=== PATIENT | male | born 1990 | race Caucasian/White ===

== ENCOUNTER 2017-08-02 19:39 | Emergency (ER) | payer OTHER ==
[~2017-08-02] VITALS: Ht 188 cm; Wt 121.1 kg
[~2017-08-02 19:39] MED LIST: AMOX500T10 PO; CEFU500T10 PO; CHOL10005 PO; CITA-141 PO; OXYC-865 PO; PRED-1 PO; PROM-110 PO; SILD25TA6 PO
--- NOTE | 2017-08-02 19:42 | ER Report ---
History and Physical Time Seen By MD: 19:41 HPI/ROS CHIEF COMPLAINT: Dizziness, lightheadedness HISTORY OF PRESENT ILLNESS: 27-year-old male presents ambulatory to the ER concerned about lightheadedness and dizziness. Patient is status post ulnar nerve surgery in his right arm several days ago.. He is wearing a large dressing involving his whole arm. He was told by his surgeon should he have any dizziness or shortness of breath come to the ER for evaluation of potential pulmonary embolism. Patient denies fever or chills. Patient notes some dizziness. When he describes sounds more like vertigo. It is reproducible with rapid head movement. Patient has no cough or shortness of breath. Patient has no leg swelling or calf pain. REVIEW OF SYSTEMS: Respiratory: No cough, no dyspnea. Cardiovascular: No chest pain, no palpitations. Gastrointestinal: No vomiting, no abdominal pain. Musculoskeletal: No back pain. Allergies: Coded Allergies: Quinolones (Verified Allergy, Unknown, 08/02/17) Home Meds Reported Medications Cholecalciferol (Vitamin D3) (VITAMIN D3) 1,000 Unit Tablet, 1000 UNIT PO, TAB 05/20/17 Citalopram Hydrobromide (CITALOPRAM HBR) 40 Mg Tablet, 40 MG PO QDAY, #5 TAB 05/20/17 Discontinued Reported Medications Sildenafil Citrate (VIAGRA) 25 Mg Tablet, 25 MG PO QDAY 05/20/17 Reviewed Nurses Notes: Yes Old Medical Records Reviewed: Yes Hx Substance Use Disorder: No Hx Alcohol Use: No Constitutional Vital Sign - Last 24 Hours 08/02/17 08/02/17 08/02/17 08/02/17 19:52 19:54 20:00 20:09 Pulse 93 82 Resp 19 17 B/P (MAP) 152/103 (119) 148/95 (112) Pulse Ox 94 92 08/02/17 08/02/17 08/02/17 20:24 20:30 21:02 Pulse 102 85 Resp 22 16 B/P (MAP) 153/88 (109) 145/85 (105) Pulse Ox 93 92 O2 Delivery Room Air Physical Exam General Appearance: The patient is alert, has no immediate need for airway protection and no current signs of toxicity. Vital signs stable, afebrile, pulse ox normal, no acute distress, slightly anxious-appearing HEENT: Pupils equal and round no injection. Oropharynx without redness or exudate, mucous members are moist Respiratory: Chest is non tender, lungs are clear to auscultation. No chest wall tenderness Cardiac: regular rate and rhythm Gastrointestinal: Abdomen is soft and non tender, no masses, bowel sounds normal. Musculoskeletal: Neck: Neck is supple and non tender. No JVD, no lymphadenopathy Extremities have full range of motion and are non tender. Right upper extremity intact long-arm splint. His right hand is neurovascularly intact. There is a strong radial pulse. There is no evidence of edema. Skin: No rashes or lesions. DIFFERENTIAL DIAGNOSIS: After history and physical exam differential diagnosis was considered for dizziness including but not limited to peripheral and central causes of vertigo, orthostatic causes including dehydration, and blood loss. Medical Decision Making Data Points Result Diagram: 08/02/17193908/02/171939 Laboratory Hematology Test 08/02/17 19:40 Red Blood Count 5.80 M/uL (4.00-5.60) Mean Corpuscular Volume 88.1 fL (80.0-96.0) Mean Corpuscular Hemoglobin 30.3 pg (26.0-33.0) Mean Corpuscular Hemoglobin Concent 34.3 g/dL (32.0-36.0) Red Cell Distribution Width 12.7 % (11.5-14.5) Mean Platelet Volume 7.5 fL (7.2-11.1) Neutrophils (%) (Auto) 59.7 % (39.4-72.5) Lymphocytes (%) (Auto) 28.4 % (17.6-49.6) Monocytes (%) (Auto) 5.5 % (4.1-12.4) Eosinophils (%) (Auto) 5.6 % (0.4-6.7) Basophils (%) (Auto) 0.8 % (0.3-1.4) Nucleated RBC Relative Count (auto) 0.1 /100WBC Neutrophils # (Auto) 5.5 K/uL (2.0-7.4) Lymphocytes # (Auto) 2.6 K/uL (1.3-3.6) Monocytes # (Auto) 0.5 K/uL (0.3-1.0) Eosinophils # (Auto) 0.5 K/uL (0.0-0.5) Basophils # (Auto) 0.1 K/uL (0.0-0.1) Nucleated RBC Absolute Count (auto) 0.01 K/uL D-Dimer Quantitative (PE/DVT) < 0.27 ug/ml (0-0.50) Sodium Level 142 mmol/L (137-145) Potassium Level 3.8 mmol/L (3.5-5.0) Chloride Level 104 mmol/L (98-107) Carbon Dioxide Level 26 mmol/L (22-30) Blood Urea Nitrogen 12 mg/dl (9-21) Creatinine 1.00 mg/dl (0.66-1.25) Glomerular Filtration Rate Calc > 60.0 Random Glucose 106 mg/dl (75-110) Calcium Level 9.0 mg/dl (8.4-10.2) Total Bilirubin 0.4 mg/dl (0.2-1.3) Aspartate Amino Transf (AST/SGOT) 42 U/L (0-35) Alanine Aminotransferase (ALT/SGPT) 70 U/L (0-56) Alkaline Phosphatase 69 U/L (0-126) Troponin I < 0.012 ng/ml Total Protein 7.3 gm/dl (6.3-8.2) Albumin 3.9 g/dl (3.5-5.0) Chemistry Test 08/02/17 19:40 White Blood Count 9.2 k/uL (4.5-11.0) Red Blood Count 5.80 M/uL (4.00-5.60) Hemoglobin 17.5 g/dL (14.0-18.0) Hematocrit 51.1 % (42.0-52.0) Mean Corpuscular Volume 88.1 fL (80.0-96.0) Mean Corpuscular Hemoglobin 30.3 pg (26.0-33.0) Mean Corpuscular Hemoglobin Concent 34.3 g/dL (32.0-36.0) Red Cell Distribution Width 12.7 % (11.5-14.5) Platelet Count 270 K/uL (150-450) Mean Platelet Volume 7.5 fL (7.2-11.1) Neutrophils (%) (Auto) 59.7 % (39.4-72.5) Lymphocytes (%) (Auto) 28.4 % (17.6-49.6) Monocytes (%) (Auto) 5.5 % (4.1-12.4) Eosinophils (%) (Auto) 5.6 % (0.4-6.7) Basophils (%) (Auto) 0.8 % (0.3-1.4) Nucleated RBC Relative Count (auto) 0.1 /100WBC Neutrophils # (Auto) 5.5 K/uL (2.0-7.4) Lymphocytes # (Auto) 2.6 K/uL (1.3-3.6) Monocytes # (Auto) 0.5 K/uL (0.3-1.0) Eosinophils # (Auto) 0.5 K/uL (0.0-0.5) Basophils # (Auto) 0.1 K/uL (0.0-0.1) Nucleated RBC Absolute Count (auto) 0.01 K/uL D-Dimer Quantitative (PE/DVT) < 0.27 ug/ml (0-0.50) Glomerular Filtration Rate Calc > 60.0 Calcium Level 9.0 mg/dl (8.4-10.2) Total Bilirubin 0.4 mg/dl (0.2-1.3) Aspartate Amino Transf (AST/SGOT) 42 U/L (0-35) Alanine Aminotransferase (ALT/SGPT) 70 U/L (0-56) Alkaline Phosphatase 69 U/L (0-126) Troponin I < 0.012 ng/ml Total Protein 7.3 gm/dl (6.3-8.2) Albumin 3.9 g/dl (3.5-5.0) Coagulation Test 08/02/17 19:40 D-Dimer Quantitative (PE/DVT) < 0.27 ug/ml EKG/Imaging EKG Interpretation 12 lead EK Rhythm: normal sinus rhythm [place]: normal QRS: normal ST segments: normal, no evidence of ischemia or dysrhythmia ED Course/Re-evaluation Clinical Indication for ER IV: IV Access ED Course Patient was admitted to an examination room. H&P was done. The differential diagnoses was considered. Patient describes vertigo and presyncopal symptoms. His vital signs are stable on arrival. He is not appear grossly dehydrated. Patient's right upper extremity is neurovascularly intact. There is no edema to suggest a DVT. Diagnostic laboratories are sent off including a d-dimer, which is unremarkable. An EKG is performed which shows a normal sinus rhythm. I do not suspect he has a pulmonary embolism as a cause of his dizziness. Further evaluation suggest patient's expressing some vertigo with this dizziness. He notes increased dizziness with head movement. He is medicated with meclizine. He is advised to use meclizine [id number] as needed. Decision to Disposition Date: Aug 02, 2017 Decision to Disposition Time: 20:28 Depart Departure Latest Vital Signs Vital Signs Date Time Temp Pulse Resp B/P (MAP) Pulse Ox O2 Delivery O2 Flow Rate FiO2 08/02/17 21:02 85 16 145/85 (105) 92 Room Air Impression: Primary Impression: Dizziness Additional Impression: History of surgery on upper extremity Condition: Improved Disposition: HOME OR SELF-CARE Patient Instructions: Vertigo (ED) Additional Instructions: Take meclizine as needed for dizziness, meclizine can be purchased over-the- counter at a drugstore or pharmacy Prescription for Zofran for additional nausea control was provided Take Mucinex D twice daily to unplug your sinuses and eustachian tubes Follow-up with your primary care provider or surgeon if unimproved in 3-5 days Problem Qualifiers ASTER JUNG DO Aug 02, 2017 19:42
[2017-08-02] MEDS ORDERED: NS(*) 0.9% 1000 ML BAG 1,000 ML IV ONE (19:55)
[2017-08-02] MEDS ORDERED: ONDANSETRON 4 MG/2 ML VIAL IVP ONE (19:55)
--- NOTE | 2017-08-02 19:58 | EKG ---
FACILITY: [facility] PATIENT NAME: REBA ORTIZ : [id number] MR: [id number] V: [id number] EXAM DATE: ORDERING PHYSICIAN: ASTER JUNG TECHNOLOGIST: JAYNA Carrillo Reason : RESPIRATORY Blood Pressure : / mmHG Vent. Rate : 088 BPM Atrial Rate : 088 BPM P-R Int : 166 ms QRS Dur : 088 ms QT Int : 348 ms P-R-T Axes : 031 033 027 degrees QTc Int : 421 ms Sinus rhythm Diffuse ST elevation - suspect early repolarization, but cannot exclude other causes Confirmed by UZIEL BARDALES ([id number] on 08/03/2017 6:14:59 AM Referred By: LOYDA Confirmed By:UZIEL BARDALES
[2017-08-02 20:08] LABS: PLATELET COUNT, AUTOMATED 270 K/uL (150-450)
[2017-08-02] MEDS ORDERED: MECLIZINE HCL 25 MG TAB PO ONE (20:25)
[2017-08-02 21:02] VITALS: BP 145/85
== END 2017-08-02 21:04 | disposition home or self-care (01) ==
LOC: ER 19:47
DX: R42 Dizziness and giddiness (principal); Z98.890 Other specified postprocedural states
CPT/HCPCS: 84484; 85025; 85379; 93005; 96374; 99284; J2405; J7030; J8597; 82040; 82247; 82310; 82374; 82435; 82565; 82947; 84075; 84132; 84155; 84295; 84450; 84460; 84520

== ENCOUNTER 2018-10-11 19:55 | Emergency (ER) | payer OTHER ==
[~2018-10-11 19:55] MED LIST changes: +AMPH20TA18 PO; +CYCL10TA29 PO; +DULO60CA7; +PROP80TA25 PO
[2018-10-11 20:09] VITALS: BP 131/89
[2018-10-11] MEDS ORDERED: SULF-198 PO (20:53)
[2018-10-11] MEDS ORDERED: MUPI22OI28 TP (20:53)
--- NOTE | 2018-10-11 20:54 | ER Report ---
History and Physical Time Seen By MD: 20:15 Hx. of Stated Complaint: ABCESS ON TAILBONE FOR TWO WEEKS. HAS BEEN SOAKING IN A HOT BATH, NOTHING HELPS HPI/ROS CHIEF COMPLAINT: Abscess HISTORY OF PRESENT ILLNESS: 28-year-old male has swelling and drainage 2 weeks in mid gluteal cleft. He states that swallowing is been gradually increasing. He was able to drain some pus a couple days ago but it has been worsening to the point that he has is significant pain with sitting. 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 He has never had other abscesses that required incision and drainage. He noted chills last night has not had fever, nausea, vomiting. He has no other associated symptoms. He has no known injury. REVIEW OF SYSTEMS: Respiratory: No cough, no dyspnea. Cardiovascular: No chest pain, no palpitations. Gastrointestinal: No vomiting, no abdominal pain. Musculoskeletal: No back pain. Remainder of the 14 system rev: Yes Allergies: Coded Allergies: Quinolones (Verified Allergy, Unknown, 10/11/18) Home Meds Reported Medications Amphet Asp/Amphet/D-Amphet (ADDERALL 20 MG TABLET) 20 Mg Tablet, 20 MG PO BID 04/04/18 Duloxetine HCl (Duloxetine HCl) 60 Mg Capsule.dr, 90 MG 04/04/18 Propranolol Hcl (PROPRANOLOL HCL) 80 Mg Tablet, 75 MG PO QDAY 04/04/18 Cholecalciferol (Vitamin D3) (VITAMIN D3) 1,000 Unit Tablet, 1000 UNIT PO, TAB 05/20/17 Discontinued Scripts Cyclobenzaprine Hcl (CYCLOBENZAPRINE HCL) 10 Mg Tablet, 10 MG PO Q8H PRN for MUSCLE SPASMS, #20 TAB 0 Refills Prov:LAUREN ANNE MD 04/04/18 Reviewed Nurses Notes: Yes Hx Substance Use Disorder: No Hx Alcohol Use: No Constitutional Vital Sign - Last 24 Hours 10/11/18 20:09 Temp 97.2 Pulse 114 Resp 16 B/P (MAP) 131/89 Pulse Ox 91 O2 Delivery Room Air Physical Exam General Appearance: The patient is alert, has no immediate need for airway protection and no current signs of toxicity. [ ] Eyes: Pupils equal and round no injection. Respiratory: no tachypnea Cardiac: no cyanosis Genitourinary; mildine erythema, induration that extends to r gluteal cleft and is 2cm x 3.5 cm. Midline fluctuance noted Musculoskeletal: Extremities have full range of motion and are non tender. Skin: No rashes or lesions. DIFFERENTIAL DIAGNOSIS: After history and physical exam differential diagnosis was considered for abscess, cyst, hematoma, deep space infection, or other emergent cause of symptoms. Medical Decision Making EKG/Imaging Imaging Results: Ultrasound of the musculoskeletal was obtained. The results of the study are 2 x 2 cm abscess at 5 mm depth at mid gluteal line. This study was interpreted by me.. ED Course/Re-evaluation ED Course 28-year-old male presents with abscess with surrounding cellulitis. After verbal consent I and D performed and obsessively evacuated. Patient has improved comfort and will discharge with antibiotics for surrounding cellulitis and strict return precautions Procedure Procedure: Abscess drainage. The patient's abscess was located on the mid gluteal cleft. I obtained verbal consent from the patient to drain the abscess who was informed about the possibility of bleeding and pain. The abscess was incised with an 11 blade and approximately 5 mL 6 amount of purulent drainage was expressed. I irrigated the wound The patient tolerated the procedure well. The procedure was performed by myself. Decision to Disposition Date: Oct 11, 2018 Decision to Disposition Time: 20:49 Depart Departure Latest Vital Signs Vital Signs Date Time Temp Pulse Resp B/P (MAP) Pulse Ox O2 Delivery O2 Flow Rate FiO2 10/11/18 20:09 97.2 114 16 131/89 91 Room Air Impression: Primary Impression: Skin abscess Condition: Improved Disposition: HOME OR SELF-CARE New Scripts Sulfamethoxazole/Trimet 800-160 Mg Tab (BACTRIM DS TABLET) 1 Each Tablet 1 TAB PO Q12H for 1 Day, #14 TAB Prov: JENNIFER ANNE MD 10/11/18 Mupirocin (MUPIROCIN) 22 Gm Oint...g. 0 TP TID for 7 Days, #1 TUBE Prov: JENNIFER ANNE MD 10/11/18 Patient Instructions: Abscess (ED) Additional Instructions: Please return for fevers, chills, uncontrolled pain, not tolerating medication, or any concerns. Problem Qualifiers Primary Impression: Skin abscess Site of cutaneous abscess: buttock Qualified Codes: L02.31 - Cutaneous abscess of buttock JENNIFER ANNE MD Oct 11, 2018 20:54
== END 2018-10-11 21:04 | disposition home or self-care (01) ==
LOC: ER 19:55
DX: L02.31 Cutaneous abscess of buttock (principal)
CPT/HCPCS: 99283